=== PATIENT | male | born 1975 | race Caucasian/White ===

== ENCOUNTER 2019-11-04 07:09 | Day surgery (SDC) | payer OTHER ==
[2019-11-04] MEDS ORDERED: Midazolam 1 MG/ML 2 ML SDV IV ONE (07:10)
[2019-11-04] MEDS ORDERED: Propofol 200 MG/20 ML SDV IV ONE (07:10)
[2019-11-04] MEDS ORDERED: Sodium Chloride 0.9% 10 ML Syringe FLUSH PRN (07:15)
[2019-11-04] MEDS ORDERED: Lactated Ringers 1,000 ML IV SCH (07:15)
--- NOTE | 2019-11-04 09:16 | PCM.OPNOTE ---
- General Post-Op/Procedure Note Date of Surgery/Procedure: 11/04/19 Operative Procedure(s): c scope with bx Findings: transverse colon polyp descending colon polyp x2 Pre Op Diagnosis: llq abd pain Post-Op Diagnosis: transverse colon polyp. descending colon polyp x2 Anesthesia Technique: MAC Primary Surgeon: Kt Mccarthy Anesthesia Provider: Belinda Gamboa Pathology: transverse colon polyp descending colon polyp x2 Complications: None Condition: Good Free Text/Narrative:: see dictation
--- NOTE | 2019-11-04 09:31 | OR ---
DATE OF OPERATION: 11/04/2019 SURGEON: Kt Mccarthy MD PROCEDURE PERFORMED: Colonoscopy with cold forceps biopsy. PREOPERATIVE DIAGNOSIS: Left lower quadrant abdominal pain. POSTOPERATIVE DIAGNOSIS: Transverse colon polyp and descending colon polyp x2. INDICATIONS FOR PROCEDURE: This is a 44-year-old white male who presents with the above mentioned complaint of some abdominal pain, was offered a colonoscopy to evaluate for possible diverticular disease. He was offered and accepted scope. DESCRIPTION OF OPERATION: After an excellent IV sedation was administered, digital rectal exam was performed. No marked abnormality was noted. Flexible colonoscope was inserted and advanced to the cecum without difficulty. Prep was excellent. The following findings were noted. Ascending colon, unremarkable. Transverse colon, polypoid lesion, biopsied with cold biopsy forceps and sent for permanent. Descending colon, within 2 cm of each other, 1 small pedunculated polyp, biopsied and retrieved. Cold forceps biopsies. An another 2 mm polyp biopsied and retrieved. Sigmoid was unremarkable. Rectum and anus were unremarkable. The patient tolerated the procedure well. Results will be sent to the patient via letter. /[id number] /MODL
== END 2019-11-04 10:03 | disposition home or self-care (01) ==
LOC: FB.SDS 07:09
PROVIDERS: ATTEND Surgery
DX: D12.3 Benign neoplasm of transverse colon (principal); D12.4 Benign neoplasm of descending colon; K42.9 Umbilical hernia without obstruction or gangrene; K40.90 Unilateral inguinal hernia, without obstruction or gangrene, not specified as recurrent; F33.40 Major depressive disorder, recurrent, in remission, unspecified; Z79.899 Other long term (current) drug therapy
CPT/HCPCS: 45380; 88305; J2250; J2704; J7120

== ENCOUNTER 2024-04-02 11:00 | Emergency (ER) | payer BC ==
[2024-04-02] MEDS ORDERED: Sodium Chloride 0.9% 10 ML Syringe FLUSH PRN (11:10)
[2024-04-02] MEDS: Nitroglycerin 0.4 MG Tab.SL SL PRN (11:33)
[2024-04-02 11:44] LABS: BLOOD UREA NITROGEN,BUN 15 mg/dL (7-18); BUN/CREATININE RATIO 13.6 (9-20); CALCIUM 8.9 mg/dL (8.6-10.2); CARBON DIOXIDE,CO2 30 mmol/L (21-32); CHLORIDE,CL 99 mmol/L (100-110); CREATININE 1.1 mg/dL (0.70-1.30); ESTIMATED GFR 83 mL/min (>60); GLUCOSE RANDOM 106 mg/dL (80-116); POTASSIUM,K 4.5 mmol/L (3.5-5.3); SODIUM,NA 137 mmol/L (135-145)
[2024-04-02 11:46] LABS: BASOPHILS PERCENT AUTO 0.4 % (0.3-3.8); EOSINOPHILS ABSOLUTE AUTO 0.1 x10-3/uL (0.0-0.6); EOSINOPHILS PERCENT AUTO 1.9 % (0.1-6.8); HEMATOCRIT 46.8 % (38.3-50.1); HEMOGLOBIN 15.8 g/dL (12.9-17.7); LYMPHOCYTES ABSOLUTE AUTO 1.2 x10-3/uL (0.5-4.5); LYMPHOCYTES PERCENT AUTO 16.1 % (15.8-45.3); MEAN CORPUSCULAR HEMOGLOBIN 31.8 pg (27.0-33.3); MEAN CORPUSCULAR HGB CONC 33.8 g/dL (28.7-35.3); MEAN CORPUSCULAR VOLUME 94.1 fL (80.8-98.7); MEAN PLATELET VOLUME 8.4 fL (6.7-11.0); MONOCYTES ABSOLUTE AUTO 0.7 x10-3/uL (0.0-1.2); MONOCYTES PERCENT AUTO 9.2 % (5.5-15.2); NEUTROPHILS ABSOLUTE AUTO 5.2 x10-3/uL (1.7-6.9); NEUTROPHILS PERCENT AUTO 72.4 % (40.3-71.8); PLATELET COUNT,PLT 165 x10(3)uL (117-477); RED BLOOD CELL COUNT 4.97 x10(6)uL (3.90-5.90); WHITE BLOOD CELL COUNT,WBC 7.2 x10-3/uL (3.2-10.1)
[2024-04-02 11:56] LABS: A/G RATIO 0.9; ALANINE AMINOTRANSFERASE,ALT 42 U/L (12-36); ALBUMIN 3.3 g/dL (3.5-5.2); ALKALINE PHOSPHATASE 75 IU/L (56-112); ASPARTATE AMNIOTRANSFERASE,AST 24 IU/L (5-25); BILIRUBIN TOTAL 0.8 mg/dL (0.1-1.3); PROTEIN TOTAL,TP 7.2 g/dL (6.0-8.0)
[2024-04-02] MEDS: Aspirin 81 MG Tab.Chew PO ONE (12:17)
[2024-04-02] MEDS ORDERED: Heparin Sodium 5,000 Units/ML Vial IVPUSH ONE (12:32)
[2024-04-02] MEDS ORDERED: Heparin Sodium/D5W 25,000 UNITS/500 ML BAG IV SCH ×2 (12:55→13:00)
[2024-04-02] MEDS: Metoprolol Tartrate 25 MG Tab PO ONE (13:07)
[2024-04-02] MEDS: Heparin Sodium 5,000 Units/ML Vial IVPUSH ONE (13:07)
[2024-04-02] MEDS: Heparin Sodium/0.45% NaCl 500 ML IV SCH (13:12)
[2024-04-02 13:18] LABS: INR 0.98 (1.00-1.24); PROTHROMBIN TIME 10.2 sec (9.0-11.1)
[2024-04-02 13:20] LABS: PTT,PARTIAL THROMBOPLSTIN TIME 27.2 SECONDS (24.4-33.2)
== END 2024-04-02 13:28 ==
LOC: FB.ED 11:00
DX: I21.4 Non-ST elevation (NSTEMI) myocardial infarction (principal); E66.9 Obesity, unspecified; Z87.891 Personal history of nicotine dependence; Z79.899 Other long term (current) drug therapy; Z79.51 Long term (current) use of inhaled steroids
CPT/HCPCS: 36415; 71046; 80053; 84484; 85025; 85379; 85610; 85730; 93005; 93010; 96374; 99285; A9270; J1644